=== PATIENT | male | born 1935 | race Caucasian/White ===

== ENCOUNTER → 2016-02-24 | Outpatient (CLI) | payer OTHER | LOC: PCVCCLINIC 11:45 | PROVIDERS: ATTEND Internal Medicine Cardiovascular Disease | DX: I25.10 Atherosclerotic heart disease of native coronary artery without angina pectoris (principal); I42.9 Cardiomyopathy, unspecified; I20.9 Angina pectoris, unspecified; E78.00 Pure hypercholesterolemia, unspecified; I10 Essential (primary) hypertension; I73.9 Peripheral vascular disease, unspecified; I77.9 Disorder of arteries and arterioles, unspecified | CPT/HCPCS: 80061; 93005; G0463 ==

== ENCOUNTER → 2016-03-01 | Outpatient (CLI) | payer OTHER ==
[~2016-03-01] MED LIST: REGADENOSON 0.4 MG/5 ML DISP.SYRIN. IV ONE
== END ==
LOC: PCVCIMAG 08:55
PROVIDERS: ATTEND Internal Medicine Cardiovascular Disease
DX: I25.10 Atherosclerotic heart disease of native coronary artery without angina pectoris (principal); R07.9 Chest pain, unspecified
CPT/HCPCS: 78452; 93017; A9500; J2785

== ENCOUNTER → 2016-05-17 | Outpatient (CLI) | payer OTHER | END | disposition home or self-care (01) | LOC: PCVCIMAG 14:31 | PROVIDERS: ATTEND Nuclear Medicine Nuclear Cardiology | DX: I65.21 Occlusion and stenosis of right carotid artery (principal); I70.213 Atherosclerosis of native arteries of extremities with intermittent claudication, bilateral legs; I25.10 Atherosclerotic heart disease of native coronary artery without angina pectoris; I77.9 Disorder of arteries and arterioles, unspecified; I42.9 Cardiomyopathy, unspecified; I10 Essential (primary) hypertension; E78.00 Pure hypercholesterolemia, unspecified | CPT/HCPCS: 93880; 93925; G0463 ==

== ENCOUNTER → 2016-06-06 | Outpatient (CLI) | payer OTHER | END | disposition home or self-care (01) | LOC: PCVCCLINIC 08:30 | PROVIDERS: ATTEND Nuclear Medicine Nuclear Cardiology | DX: I73.9 Peripheral vascular disease, unspecified (principal) | CPT/HCPCS: 36415 ==

== ENCOUNTER → 2016-06-07 | Outpatient (CLI) | payer OTHER ==
[~2016-06-07] MED LIST changes: +ACETAMINOPHEN 500 MG TABLET PO ONE; +CEFAZOLIN 2GM PREMIX 50 ML IV ONE; +DIAZEPAM 10 MG TABLET. ONE; +EPTIFIBATIDE BOLUS 2,000 MCG/ML 10ML VIAL. IV ONE; +FENTANYL PF 100 MCG/2 ML VIAL. ONE; +HEPARIN SODIUM 5,000 UNIT/ML VIAL. ONE; +IODIXANOL 270 MG/ML 100 ML VIAL. ONE; +IV NORMAL SALINE 1000ML BAG 1,000 ML ONE; +IV NORMAL SALINE 500ML BAG 500 ML ONE; +LIDOCAINE 1% Multi-Dose 20 ML VIAL. ONE; +MIDAZOLAM HCL/PF 2 MG/2 ML VIAL. ONE; -REGADENOSON 0.4 MG/5 ML DISP.SYRIN. IV ONE; +hydrALAZINE 20 MG/ML VIAL. ONE
== END | disposition home or self-care (01) ==
LOC: PCVCINTER 07:23
PROVIDERS: ATTEND Nuclear Medicine Nuclear Cardiology
DX: I70.201 Unspecified atherosclerosis of native arteries of extremities, right leg (principal)
CPT/HCPCS: 37186; 37227; 75710; 76937; C1725; C1757; C1760; C1769; C1874; C1885; C1894; J0360; J0690; J1327; J1644; J2250; J3010; J7030; J7040; 61707

== ENCOUNTER → 2016-10-10 | Outpatient (CLI) | payer OTHER ==
--- NOTE | 2016-10-10 10:26 | PCVCIMAG ---
EXAM: AORTOILIAC DUPLEX INDICATION: Peripheral arterial disease FINDINGS: AORTA: Suprarenal aorta measures maximum diameter of 3.0 cm. There is not a fusiform infrarenal aortic aneurysm. The infrarenal aorta measures maximum diameter of 2.9 cm. No aortic stenosis. Postsurgical changes of aorto bifemoral graft remains patent. No significant stenosis identified. IMPRESSION: Intact aortobifemoral bypass graft with no evidence of stenosis. Ectasia of the abdominal aorta just above the proximal anastomosis of the graft measuring up to 2.9 cm in diameter. LOC:OFFICE
--- NOTE | 2016-10-10 10:30 | PCVCIMAG ---
EXAM: BILATERAL RENAL ULTRASOUND AND BILATERAL RENAL DUPLEX INDICATION: Hypertension FINDINGS: Right kidney: Length measures 10.4 cm. No hydronephrosis or extensive renal scarring. Several benign cysts in the right kidney the largest in the lower pole measuring 2.7 x 3.8 cm. Right renal duplex: Adequate technical quality. 70% proximal renal artery stenosis. The aortic to renal artery ratio is 4.7. The renal vein is patent. Left kidney: Length measures 12.4 cm. No hydronephrosis or extensive renal scarring. Left renal duplex: Adequate technical quality. No sonographic evidence of renal artery stenosis. The aortic to renal artery ratio is 2.3. The renal vein is patent. Bladder: No obvious abnormalities. IMPRESSION: 70% stenosis proximal right renal artery. No significant left renal artery stenosis. LOC:OFFICE
--- NOTE | 2016-10-10 10:32 | PCVCIMAG ---
EXAM: BILATERAL LOWER EXTREMITY ARTERIAL DUPLEX INDICATION: Peripheral Arterial Disease. Leg pain. FINDINGS: Right Leg: Satisfactory arterial waveforms throughout the common/profunda/superficial femoral, popliteal, anterior tibial, peroneal, and posterior tibial arteries. No flow limiting stenosis seen. Previous stent mid/distal superficial femoral artery maintaining good patency. Left Leg: Satisfactory arterial waveforms throughout the common/profunda/superficial femoral, popliteal, anterior tibial, peroneal, and posterior tibial arteries. No flow limiting stenosis seen. Previous stent mid/distal superficial femoral artery maintaining good patency. IMPRESSION: No flow limiting stenosis in the right lower extremity. No flow limiting stenosis in the left lower extremity. Previous right and left superficial femoral artery stents are maintaining good patency. LOC:OFFICE
== END | disposition home or self-care (01) ==
LOC: PCVCIMAG 08:03
PROVIDERS: ATTEND Nuclear Medicine Nuclear Cardiology
DX: I73.9 Peripheral vascular disease, unspecified (principal); I70.1 Atherosclerosis of renal artery; I77.89 Other specified disorders of arteries and arterioles; N28.1 Cyst of kidney, acquired; I10 Essential (primary) hypertension; I77.811 Abdominal aortic ectasia; Z95.828 Presence of other vascular implants and grafts
CPT/HCPCS: 76770; 93925; 93975; 93978

== ENCOUNTER → 2016-10-11 | Outpatient (CLI) | payer OTHER | END | disposition home or self-care (01) | LOC: PCVCCLINIC 12:00 | PROVIDERS: ATTEND Nuclear Medicine Nuclear Cardiology | DX: I73.9 Peripheral vascular disease, unspecified (principal); I77.9 Disorder of arteries and arterioles, unspecified; I71.4 Abdominal aortic aneurysm, without rupture; I70.1 Atherosclerosis of renal artery; I25.10 Atherosclerotic heart disease of native coronary artery without angina pectoris; I10 Essential (primary) hypertension; E11.9 Type 2 diabetes mellitus without complications; E78.00 Pure hypercholesterolemia, unspecified; I65.23 Occlusion and stenosis of bilateral carotid arteries; Z90.79 Acquired absence of other genital organ(s); Z72.0 Tobacco use; Z79.82 Long term (current) use of aspirin; Z88.6 Allergy status to analgesic agent; Z88.8 Allergy status to other drugs, medicaments and biological substances | CPT/HCPCS: G0463 ==

== ENCOUNTER → 2017-08-21 | Outpatient (CLI) | payer OTHER | END | disposition home or self-care (01) | LOC: PCVCIMAG 11:29 | DX: I25.10 Atherosclerotic heart disease of native coronary artery without angina pectoris (principal); I42.8 Other cardiomyopathies; E11.9 Type 2 diabetes mellitus without complications; I70.1 Atherosclerosis of renal artery; I73.9 Peripheral vascular disease, unspecified; I77.9 Disorder of arteries and arterioles, unspecified; I71.4 Abdominal aortic aneurysm, without rupture; E78.00 Pure hypercholesterolemia, unspecified; I10 Essential (primary) hypertension; F17.210 Nicotine dependence, cigarettes, uncomplicated; Z88.8 Allergy status to other drugs, medicaments and biological substances; Z79.82 Long term (current) use of aspirin; Z79.899 Other long term (current) drug therapy | CPT/HCPCS: 80061; 93005; 93925; G0463 ==

== ENCOUNTER → 2018-05-22 | Outpatient (CLI) | payer OTHER ==
--- NOTE | 2018-05-22 19:37 | PCVCIMAG ---
EXAM: BILATERAL LOWER EXTREMITY ARTERIAL DUPLEX INDICATION: Peripheral Arterial Disease. Leg pain. FINDINGS: Right Leg: Common femoral and profunda femoral arteries are patent. Superficial femoral and popliteal arteries are patent. Previous stent mid/distal superficial femoral artery and upper popliteal artery maintaining satisfactory patency. Anterior tibial, peroneal, and posterior tibial arteries are patent. Left Leg: Common femoral and profunda femoral arteries are patent. Increased systolic velocity 390 cm/s mid [place] superficial femoral artery consistent with 90% restenosis of previous intervention. Previous stent distal superficial femoral artery maintaining satisfactory patency. Popliteal artery is patent. The anterior tibial, peroneal, and posterior tibial arteries are patent. IMPRESSION: No flow limiting stenosis in the right lower extremity. Previous right superficial femoral artery/popliteal artery stent maintaining satisfactory patency. 90% restenosis mid [place] left superficial femoral artery at previous site of intervention has increased in severity since 2018 study. Previous stent distal left superficial femoral artery maintaining satisfactory patency. LOC:[id number]
== END | disposition home or self-care (01) ==
LOC: PCVCIMAG 10:11
PROVIDERS: ATTEND Internal Medicine Cardiovascular Disease
DX: I73.9 Peripheral vascular disease, unspecified (principal)
CPT/HCPCS: 93925

== ENCOUNTER → 2018-10-25 | Outpatient (CLI) | payer OTHER ==
--- NOTE | 2018-10-25 10:32 | PCVCIMAG ---
EXAM: BILATERAL CAROTID DUPLEX INDICATION: Carotid Occlusive Disease. Previous left carotid endarterectomy. FINDINGS: Doppler Measurements (centimeters per second): RIGHT: Peak CCA-66, Peak ECA-98, Diastolic ICA-19, Peak ICA-111, ICA/CCA Ratio-1.7. LEFT: Peak CCA-54, Peak ECA-87, Diastolic ICA-19, Peak ICA-68, ICA/CCA Ratio-1.1. RIGHT CAROTID: The carotid bulb has moderately severe plaque. The proximal internal carotid artery shows <40% stenosis. The common carotid artery shows no significant stenosis. The external carotid artery shows no significant stenosis. LEFT CAROTID: The carotid bulb has mild plaque. The proximal internal carotid artery shows <40% stenosis. The common carotid artery shows no significant stenosis. The external carotid artery shows no significant stenosis. Antegrade flow in both vertebral arteries. IMPRESSION: <40% stenosis of the right internal carotid artery with moderately severe plaque. <40% stenosis of the left internal carotid artery with mild plaque. Little change since April 2016 study. LOC:[id number]
--- NOTE | 2018-10-25 11:48 | PCVCIMAG ---
EXAM: BILATERAL RENAL ULTRASOUND AND BILATERAL RENAL DUPLEX INDICATION: Hypertension FINDINGS: Right kidney: Length measures 10.7 cm. No hydronephrosis or extensive renal scarring. Several benign cysts in the kidney the largest in the lower pole measuring 3.3 x 4.8 cm. Right renal duplex: Adequate technical quality. 60-70% proximal renal artery stenosis. The aortic to renal artery ratio is 3.7. The renal vein is patent. Left kidney: Length measures 11.4 cm. No hydronephrosis or extensive renal scarring. Left renal duplex: Adequate technical quality. No sonographic evidence of renal artery stenosis. The aortic to renal artery ratio is 2.4. The renal vein is patent. Bladder: No obvious abnormalities. IMPRESSION: 60-70% stenosis proximal right renal artery. No left renal artery stenosis. Little overall change since September 2016 study. LOC:[id number]
== END | disposition home or self-care (01) ==
LOC: PCVCIMAG 10:00
PROVIDERS: ATTEND Internal Medicine Cardiovascular Disease
DX: I65.23 Occlusion and stenosis of bilateral carotid arteries (principal); I25.10 Atherosclerotic heart disease of native coronary artery without angina pectoris; E78.00 Pure hypercholesterolemia, unspecified; E11.9 Type 2 diabetes mellitus without complications; I70.1 Atherosclerosis of renal artery; I73.9 Peripheral vascular disease, unspecified; I42.9 Cardiomyopathy, unspecified; R07.89 Other chest pain
CPT/HCPCS: 76770; 93880; 93975

== ENCOUNTER → 2018-12-20 | Outpatient (CLI) | payer OTHER ==
[~2018-12-20] MED LIST changes: -ACETAMINOPHEN 500 MG TABLET PO ONE; -CEFAZOLIN 2GM PREMIX 50 ML IV ONE; -DIAZEPAM 10 MG TABLET. ONE; -EPTIFIBATIDE BOLUS 2,000 MCG/ML 10ML VIAL. IV ONE; -FENTANYL PF 100 MCG/2 ML VIAL. ONE; -HEPARIN SODIUM 5,000 UNIT/ML VIAL. ONE; -IODIXANOL 270 MG/ML 100 ML VIAL. ONE; -IV NORMAL SALINE 1000ML BAG 1,000 ML ONE; -IV NORMAL SALINE 500ML BAG 500 ML ONE; -LIDOCAINE 1% Multi-Dose 20 ML VIAL. ONE; -MIDAZOLAM HCL/PF 2 MG/2 ML VIAL. ONE; +REGADENOSON 0.4 MG/5 ML DISP.SYRIN. IV ONE; -hydrALAZINE 20 MG/ML VIAL. ONE
--- NOTE | 2018-12-20 17:27 | PCVCIMAG ---
APPROVED REPORT Imaging Protocol: Rest Tc-99m/Stress Tc-99m 1 day Study performed: 12/20/2018 09:08:36 Indication: Chest pain, Cardiomyopathy, CAD Patient Location: Out-Patient Stress Nurse: Roselia Schmitz RN, Marlen Lee RN [place] Tech:Brianne Neelam [facility] Ht: 6 ft 1 in Wt: 180 lbs BSA: 2.06 m2 HR: 52 bpm BP: 166/84 mmHg BMI: 23.7 Rhythm: Sinus Rhythm, RBBB, PVC's Medical History Medical History: Hyperlipidemia, HTN, CAD, CVD, PVD, Diabetes Medications: Aspirin, Atorvastatin, Bystolic, Plavix, Irbesartan, Zetia Allergies: Codeine, Oxycotin Cardiac Risk Factors: Age Pretest Chest Pain Characteristics: No chest pain Exercise History: Physically active Meds Held (24 hrs): Bystolic Resting Data Rest SPECT myocardial perfusion imaging was performed in supine position 45 minutes following the intravenous injection of 10.3 mCi of Tc-99m Sestamibi. Time of rest injection: 0845 Date: 12/20/2018 Administration Route: IV Administration Site: Right Arm Pharmacologic Stress Pharmacologic stress test was performed by injecting Regadenoson 0.4 mg IV push over 10-15 seconds immediately followed by the intravenous injection of 32.9 mCi of Tc-99m Sestamibi. Time of stress injection: 1000 Date: 12/20/2018 Administration Route: IV Administration Site: Right Arm Gated Stress SPECT was performed 45 minutes after stress injection. The images were gated to evaluate regional wall motion and calculate left ventricular ejection fraction. Stress Test Details Stress Test: Pharmacologic stress testing performed using 0.4 mg of regadenoson per 5 mL given IV over 10 seconds. Reason for pharmacologic stress test: physical limitation, back and knee issues. HRMax Heart Rate (APMHR): 139 bpm Resting HR: 52 bpmTarget HR (85% APMHR): 118 bpm Max HR Achieved: 65 bpm % of APMHR: 46 Recovery HR: 61 bpm BP Resting BP: 166/84 mmHg Max BP: 176/84 mmHg Recovery BP: 155/88 mmHg ECG Resting ECG: Sinus Rhythm, RBBB, PVC's Stress ECG: Sinus Rhythm, RBBB, PVC's Arrhythmia: PVC's Recovery ECG: Sinus Rhythm, RBBB, PVC's Clinical Reason for Termination: Completed protocol Stress Symptoms: Abdominal discomfort, Dyspnea Symptoms resolved with caffeine. Stress ECG Conclusion ECG: Non-ischemic Clinical: Non-ischemic Study Quality Study: Good Study Data Post stress, the left ventricular ejection was 56%.. SSS: 30 SRS: 34 SDS: 0 TID = 0.79. Perfusion No evidence of stress induced ischemia. 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 Old complete infarct involving the mid/apical inferoseptal wall of the left ventricle with no faustina-infarct ischemia. Wall Motion Moderate ventricular dilatation. Nuclear Conclusion No evidence of stress induced ischemia. 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 Old complete infarct involving the mid/apical inferoseptal wall of the left ventricle with no faustina-infarct ischemia. Post stress, the left ventricular ejection was 56%. No change since prior study dated February 2016. Interpreted by: Ruddy Shea MD Electronically Approved: 12/20/2018 17:11:56 <Conclusion> ECG: Non-ischemic Clinical: Non-ischemic
== END | disposition home or self-care (01) ==
LOC: PCVCIMAG 09:19
PROVIDERS: ATTEND Internal Medicine Cardiovascular Disease
DX: I25.10 Atherosclerotic heart disease of native coronary artery without angina pectoris (principal); I42.9 Cardiomyopathy, unspecified; R07.89 Other chest pain; E11.9 Type 2 diabetes mellitus without complications; E78.00 Pure hypercholesterolemia, unspecified; E78.5 Hyperlipidemia, unspecified; I73.9 Peripheral vascular disease, unspecified; F17.210 Nicotine dependence, cigarettes, uncomplicated; Z98.52 Vasectomy status; Z82.49 Family history of ischemic heart disease and other diseases of the circulatory system; Z72.89 Other problems related to lifestyle; Z88.5 Allergy status to narcotic agent; Z88.8 Allergy status to other drugs, medicaments and biological substances
CPT/HCPCS: 78452; 93017; A9500; J2785